=== PATIENT | male | born 1970 | race Caucasian/White ===

== ENCOUNTER 2018-06-04 12:15 | Emergency (ER) | payer OTHER ==
[~2018-06-04] VITALS: Ht 182.9 cm; Wt 99.8 kg
[~2018-06-04 12:15] MED LIST: DIABETA5 MG PO; DILAUDID4 MG PO; LORAZEPAM1 MG PO; OXYCODONE HCL5 MG PO
[2018-06-04] MEDS ORDERED: FUROSEMIDE80 MG PO (12:27)
== END 2018-06-04 13:21 | disposition home or self-care (01) ==
LOC: ED 12:15
DX: R18.8 Other ascites (principal); K72.90 Hepatic failure, unspecified without coma; Z88.0 Allergy status to penicillin; Z79.899 Other long term (current) drug therapy
CPT/HCPCS: 99282